=== PATIENT | male | born 1945 | race Caucasian/White ===

== ENCOUNTER → 2019-09-25 | Outpatient (CLI) | payer OTHER ==
[~2019-09-25] MED LIST: ADULT LOW DOSE81 MG PO; ASPIRIN; CELEXA 20 MG TA20 M1 PO; FLOMAX PO; K-DUR 20 MEQ T20 MEQ PO; LASIX 20 MG TAB20 MG PO; LIPITOR40 MG PO; LOPRESSOR 50 MG50 M1 PO; MICARDIS40 MG PO; MOBIC7.5 MG; MULTAQ400 MG PO; PROTONIX PO; PROTONIX40 M2 PO; RYTHMOL SR225 MG PO
== END ==
LOC: RAD 15:38
DX: R06.02 Shortness of breath (principal); R06.2 Wheezing; R05 Cough